=== PATIENT | male | born 1950 | race Asian ===

== ENCOUNTER 2016-11-17 11:39 | Inpatient (IN) | payer MEDICARE, OTHER ==
[~2016-11-17] VITALS: Ht 162.6 cm; Wt 83.9 kg
[~2016-11-17 11:39] MED LIST: ATOR20TA65 PO; DOCU250C91 PO; HYDR-3965 PO; LEVO150 PO; PHOSLOC PO; SENN-175 PO; TIOT185 IH
[2016-11-17] MEDS ORDERED: GABA-529 PO (11:53)
[2016-11-17] MEDS ORDERED: ALBU8HFA IH (11:53)
[2016-11-17] MEDS ORDERED: BISA5TAB12 PO (11:53)
[2016-11-17] MEDS ORDERED: TIOT185 IH (11:53)
[2016-11-17] MEDS ORDERED: SITA25 PO (11:53)
[2016-11-17] MEDS ORDERED: FOLI1 PO (11:53)
[2016-11-17] MEDS ORDERED: CYAN500 PO (11:53)
[2016-11-17 12:22] LABS: BASOPHILS # (AUTO) 0.03 K/uL (0.00-0.20); BASOPHILS % (AUTO) 0.5 % (0.0-2.0); EOSINOPHILS # (AUTO) 0.39 K/uL (0.00-0.70); EOSINOPHILS % (AUTO) 6.86 % (1.0-6.0); HEMATOCRIT 26.8 % (41-53); HEMOGLOBIN 8.7 g/dL (13.5-17.5); LYMPHOCYTES # (AUTO) 1.3 K/uL (1.0-4.8); LYMPHOCYTES % (AUTO) 22.5 % (22.0-44.0); MEAN CORPUSCULAR HEMOGLOBIN 35.6 pg (26.0-34.0); MEAN CORPUSCULAR HGB CONC 32.5 G/dL (31.0-37.0); MEAN CORPUSCULAR VOLUME 109 fL (80-100); MONOCYTES # (AUTO) 0.7 K/uL (0.1-1.0); MONOCYTES % (AUTO) 11.7 % (2.0-9.0); NEUTROPHILS # (AUTO) 3.4 K/uL (1.8-7.7); NEUTROPHILS % (AUTO) 58.4 % (40.0-70.0); PLATELET COUNT (AUTO) 120 K/uL (150-450); RED BLOOD CELL COUNT(AUTO) 2.45 MIL/uL (4.50-5.90); WHITE BLOOD COUNT (AUTO) 5.8 K/uL (4.5-11.0)
[2016-11-17 12:26] LABS: CALCIUM, TOTAL 8.6 mg/dL (8.8-10.5); CREATININE 4.92 mg/dL (0.60-1.30); POTASSIUM 3.2 mmol/L (3.5-5.1)
[2016-11-17] MEDS ORDERED: FUROSEMIDE 40 MG/4 ML VIAL IVP ONE (12:30)
[2016-11-17 12:32] LABS: ALBUMIN 2.6 g/dL (3.4-5.0); BILIRUBIN,TOTAL 0.3 mg/dL (0.1-1.0); TOTAL PROTEIN, SERUM 9.9 g/dL (6.4-8.2)
[2016-11-17] MEDS ORDERED: ONDANSETRON HCL 4 MG/2 ML VIAL IVP PRN (13:00)
[2016-11-17] MEDS ORDERED: ACETAMINOPHEN 325 MG TABLET PO PRN ×2 (13:00→15:30)
[2016-11-17] MEDS ORDERED: 0.9% SODIUM CHLORIDE 10 ML SYRINGE IVP PRN (13:00)
[2016-11-17] MEDS ORDERED: SODIUM CHLORIDE 0.9% 1,000 ML IV ONE (13:00)
[2016-11-17] MEDS ORDERED: SODIUM CHLORIDE 0.9% 100 ML ONE ×2 (13:12→17:49)
[2016-11-17] MEDS ORDERED: IOVERSOL 350 MG/ML 100 ML VIAL ONE (13:12)
[2016-11-17 13:32] LABS: INR 1.1 (0.9-1.1); PROTHROMBIN TIME 12.1 SEC (9.4-11.6)
[2016-11-17] MEDS ORDERED: AZITHROMYCIN 500 MG/NS 250 ML IV ONE (14:15)
[2016-11-17] MEDS ORDERED: CefTRIAXone 1 GM/DEXTROSE 50 ML IV ONE (14:15)
[2016-11-17 14:20] VITALS: BP 96/59
[2016-11-17 14:34] LABS: THYROID STIMULATING HORMONE 13.62 uIU/mL (0.36-3.74)
[2016-11-17] MEDS ORDERED: OxyCODONE HCL/ACETAMINOPHEN 5-325 MG TABLET PO PRN (15:30)
[2016-11-17] MEDS ORDERED: INSULIN ASPART 100 UNITS/ML SQ PRN (15:30)
[2016-11-17] MEDS ORDERED: DEXTROSE 50%-WATER 25 GM/50 ML SYRINGE IVP PRN (15:30)
[2016-11-17 15:45] VITALS: BP 82/49
[2016-11-17] MEDS ORDERED: MANNITOL 25%-12.5 GM/50 ML VIAL IVP PRN (16:00)
[2016-11-17] MEDS ORDERED: ALBUMIN HUMAN 25%-12.5GM/50ML IV BOTTLE IV PRN (16:00)
[2016-11-17] MEDS ORDERED: ALBUMIN HUMAN 5%-12.5GM/250ML 250 ML IV ONE (17:00)
[2016-11-17] MEDS ORDERED: ALBUMIN HUMAN 25%-12.5GM/50ML IV BOTTLE ONE (17:38)
[2016-11-17] MEDS ORDERED: MANNITOL 25%-12.5 GM/50 ML VIAL IVP ONE ×2 (17:38→17:40)
[2016-11-17] MEDS: CefTRIAXone 1 GM/DEXTROSE 50 ML IV SCH (18:27)
[2016-11-17 19:47] VITALS: BP 100/42
[2016-11-17 20:41] LABS: ABG A-A DIFF O2 105.6 mmHg (10-20.0); ABG BASE EXCESS 2.3 mmol/L (-2.0-3.0); ABG HCO3 26.2 mmol/L (22.0-26.0); ABG OXYHEMOGLOBIN 94.7 % (94.0-100.0); ABG PCO2 50 mmHg (35-45); ABG PH 7.363 (7.35-7.450); TEMPERATURE, FAHRENHEIT, BG 98.6 FAHREN (96.0-98.6)
[2016-11-17 20:42] LABS: ALLEN TEST, BLOOD GAS Positive
[2016-11-17] MEDS: DOXYCYCLINE 100 MG CAPSULE PO SCH ×2 (21:00→21:48)
[2016-11-17 21:20] VITALS: BP 93/50
[2016-11-17] MEDS: DOCUSATE SODIUM 100 MG CAPSULE PO SCH (21:47)
[2016-11-17] MEDS: HEPARIN SODIUM,PORCINE 5,000 UNITS/ML VIAL SQ SCH (21:47)
[2016-11-17] MEDS: MIDODRINE HCL 5 MG TABLET PO SCH (22:17)
[2016-11-17] MEDS: IPRATROPIUM BROMIDE 0.5 MG/2.5 ML NEB SOLUTION NEB SCH (23:06)
[2016-11-17] MEDS: ALBUTEROL SULFATE 2.5 MG/0.5 ML NEB SOLUTION NEB SCH (23:06)
[2016-11-17 23:43] VITALS: BP 99/53
[2016-11-18] MEDS: IPRATROPIUM BROMIDE 0.5 MG/2.5 ML NEB SOLUTION NEB SCH ×6 (03:45→22:47)
[2016-11-18] MEDS: ALBUTEROL SULFATE 2.5 MG/0.5 ML NEB SOLUTION NEB SCH ×6 (03:45→22:47)
[2016-11-18 04:30] VITALS: BP 93/57
[2016-11-18] MEDS: LEVOTHYROXINE SODIUM 50 MCG TABLET PO SCH (05:50)
[2016-11-18 06:24] LABS: BASOPHILS % (AUTO) 0.7 % (0.0-2.0); EOSINOPHILS % (AUTO) 7.5 % (1.0-6.0); HEMATOCRIT 23.5 % (41-53); HEMOGLOBIN 7.8 g/dL (13.5-17.5); LYMPHOCYTES # (AUTO) 0.9 K/uL (1.0-4.8); LYMPHOCYTES % (AUTO) 17.4 % (22.0-44.0); MEAN CORPUSCULAR VOLUME 109 fL (80-100); MONOCYTES # (AUTO) 0.6 K/uL (0.1-1.0); MONOCYTES % (AUTO) 11.6 % (2.0-9.0); NEUTROPHILS # (AUTO) 3.2 K/uL (1.8-7.7); NEUTROPHILS % (AUTO) 62.8 % (40.0-70.0); PLATELET COUNT (AUTO) 100 K/uL (150-450); RED BLOOD CELL COUNT(AUTO) 2.15 MIL/uL (4.50-5.90); RED CELL DISTRIBUTION WIDTH 19.3 % (11.5-14.5); WHITE BLOOD COUNT (AUTO) 5.1 K/uL (4.5-11.0)
[2016-11-18 06:58] LABS: ALBUMIN 2.6 g/dL (3.4-5.0); BILIRUBIN,TOTAL 0.3 mg/dL (0.1-1.0); CALCIUM, TOTAL 7.8 mg/dL (8.8-10.5); CREATININE 4.47 mg/dL (0.60-1.30); PHOSPHORUS 2.5 mg/dL (2.5-4.9); POTASSIUM 4.4 mmol/L (3.5-5.1); TOTAL PROTEIN, SERUM 8.8 g/dL (6.4-8.2)
[2016-11-18 07:50] VITALS: BP 106/65
[2016-11-18 08:23] LABS: RBC MORPHOLOGY COMMENT ABNORMAL RBC MORPH
[2016-11-18] MEDS ORDERED: MIDODRINE HCL 5 MG TABLET PO SCH (09:00)
[2016-11-18] MEDS: HEPARIN SODIUM,PORCINE 5,000 UNITS/ML VIAL SQ SCH ×2 (11:13→20:50)
[2016-11-18] MEDS: DOCUSATE SODIUM 100 MG CAPSULE PO SCH ×2 (11:13→20:51)
[2016-11-18] MEDS: DOXYCYCLINE 100 MG CAPSULE PO SCH ×2 (11:13→20:50)
[2016-11-18] MEDS: VITAMIN B COMP/VIT C/FOLIC ACID CAPSULE PO SCH (11:14)
[2016-11-18] MEDS: MIDODRINE HCL 5 MG TABLET PO SCH ×3 (11:14→20:50)
[2016-11-18] MEDS: PANTOPRAZOLE SODIUM 40 MG DR TABLET PO SCH (11:14)
[2016-11-18] MEDS: ASPIRIN 81 MG CHEWABLE TABLET PO SCH (11:14)
[2016-11-18 12:12] VITALS: BP 99/58
[2016-11-18 12:13] LABS: GLUCOSE,POINT OF CARE 128 MG/DL (70-110)
[2016-11-18 12:22] LABS: GLUCOSE,POINT OF CARE 114 MG/DL (70-110)
[2016-11-18] MEDS: CefTRIAXone 1 GM/DEXTROSE 50 ML IV SCH (15:14)
[2016-11-18 16:01] VITALS: BP 98/53
[2016-11-18] MEDS: OXYGEN THERAPY IH SCH (18:48)
[2016-11-18 20:03] VITALS: BP 98/57
[2016-11-19] VITALS (7 sets, daily range): BP systolic 108–151; BP diastolic 60–99
[2016-11-19] MEDS: IPRATROPIUM BROMIDE 0.5 MG/2.5 ML NEB SOLUTION NEB SCH ×6 (02:45→23:19)
[2016-11-19] MEDS: ALBUTEROL SULFATE 2.5 MG/0.5 ML NEB SOLUTION NEB SCH ×6 (02:45→23:19)
[2016-11-19 06:09] LABS: BASOPHILS % (AUTO) 0.7 % (0.0-2.0); EOSINOPHILS % (AUTO) 7.3 % (1.0-6.0); HEMATOCRIT 24.2 % (41-53); HEMOGLOBIN 7.9 g/dL (13.5-17.5); LYMPHOCYTES # (AUTO) 0.8 K/uL (1.0-4.8); LYMPHOCYTES % (AUTO) 16.4 % (22.0-44.0); MEAN CORPUSCULAR HEMOGLOBIN 35.3 pg (26.0-34.0); MEAN CORPUSCULAR HGB CONC 32.7 G/dL (31.0-37.0); MEAN CORPUSCULAR VOLUME 108 fL (80-100); MONOCYTES # (AUTO) 0.5 K/uL (0.1-1.0); MONOCYTES % (AUTO) 10.9 % (2.0-9.0); NEUTROPHILS # (AUTO) 3.2 K/uL (1.8-7.7); NEUTROPHILS % (AUTO) 64.7 % (40.0-70.0); PLATELET COUNT (AUTO) 94 K/uL (150-450); RED BLOOD CELL COUNT(AUTO) 2.24 MIL/uL (4.50-5.90)
[2016-11-19] MEDS: LEVOTHYROXINE SODIUM 50 MCG TABLET PO SCH (06:11)
[2016-11-19 06:39] LABS: CALCIUM, TOTAL 7.7 mg/dL (8.8-10.5); CREATININE 6.29 mg/dL (0.60-1.30); MAGNESIUM 2.1 mg/dL (1.80-2.40); PHOSPHORUS 4.1 mg/dL (2.5-4.9); POTASSIUM 4.8 mmol/L (3.5-5.1)
[2016-11-19] MEDS ORDERED: ALBUMIN HUMAN 25%-12.5GM/50ML IV BOTTLE IV PRN (07:45)
[2016-11-19] MEDS ORDERED: MANNITOL 25%-12.5 GM/50 ML VIAL IVP PRN (07:45)
[2016-11-19] MEDS ORDERED: SODIUM CHLORIDE 0.9% 1,000 ML IV ONE ×2 (07:47)
[2016-11-19 08:27] LABS: RBC MORPHOLOGY COMMENT ABNORMAL RBC MORPH
[2016-11-19] MEDS ORDERED: EPOETIN ALFA 10,000 UNITS/ML VIAL SQ SCH (09:00)
[2016-11-19 10:00] LABS: GLUCOSE,POINT OF CARE 85 MG/DL (70-110)
[2016-11-19 10:00] LABS: GLUCOSE,POINT OF CARE 104 MG/DL (70-110)
[2016-11-19 10:00] LABS: GLUCOSE,POINT OF CARE 118 MG/DL (70-110)
[2016-11-19 10:01] LABS: GLUCOSE,POINT OF CARE 114 MG/DL (70-110)
[2016-11-19 10:12] LABS: GLUCOSE COMMENT 1 Received Meds; GLUCOSE,POINT OF CARE 177 MG/DL (70-110)
[2016-11-19] MEDS: DOXYCYCLINE 100 MG CAPSULE PO SCH ×2 (11:47→21:03)
[2016-11-19] MEDS: VITAMIN B COMP/VIT C/FOLIC ACID CAPSULE PO SCH (11:47)
[2016-11-19] MEDS: ASPIRIN 81 MG CHEWABLE TABLET PO SCH (11:48)
[2016-11-19] MEDS: DOCUSATE SODIUM 100 MG CAPSULE PO SCH ×2 (11:48→21:03)
[2016-11-19] MEDS: PANTOPRAZOLE SODIUM 40 MG DR TABLET PO SCH (11:48)
[2016-11-19] MEDS: MIDODRINE HCL 5 MG TABLET PO SCH ×3 (11:48→21:03)
[2016-11-19] MEDS: HEPARIN SODIUM,PORCINE 5,000 UNITS/ML VIAL SQ SCH ×2 (11:49→21:04)
[2016-11-19] MEDS: OXYGEN THERAPY IH SCH ×2 (11:54→21:04)
[2016-11-19] MEDS: CefTRIAXone 1 GM/DEXTROSE 50 ML IV SCH (15:27)
[2016-11-19 20:06] LABS: FERRITIN 455 ng/mL (26-388)
[2016-11-19 20:24] LABS: LACTATE DEHYDROGENASE 253 U/L (85-227)
[2016-11-19 20:30] LABS: FIBRINOGEN 254 mg/dL (200-400); PARTIAL THROMBOPLASTIN TIME 31 SEC (25-35)
[2016-11-19] MEDS: BISACODYL 10 MG RECTAL RECTAL SUPPOSITORY PR PRN (21:04)
[2016-11-19 21:11] LABS: MYCOPLASMA AB IGG 350 U/mL (0-99)
[2016-11-20] MEDS: ALBUTEROL SULFATE 2.5 MG/0.5 ML NEB SOLUTION NEB SCH ×6 (03:43→23:25)
[2016-11-20] MEDS: IPRATROPIUM BROMIDE 0.5 MG/2.5 ML NEB SOLUTION NEB SCH ×6 (03:44→23:25)
[2016-11-20 04:46] VITALS: BP 122/74
[2016-11-20] MEDS: LEVOTHYROXINE SODIUM 50 MCG TABLET PO SCH (06:04)
[2016-11-20 07:45] VITALS: BP 136/87
[2016-11-20 07:55] LABS: HOMOCYSTEINE, TOTAL 13.9 umol/L (0.0-15.0)
[2016-11-20] MEDS: MIDODRINE HCL 5 MG TABLET PO SCH ×3 (08:27→20:43)
[2016-11-20] MEDS: ASPIRIN 81 MG CHEWABLE TABLET PO SCH (08:27)
[2016-11-20] MEDS: PANTOPRAZOLE SODIUM 40 MG DR TABLET PO SCH (08:27)
[2016-11-20] MEDS: DOXYCYCLINE 100 MG CAPSULE PO SCH ×2 (08:27→20:43)
[2016-11-20] MEDS: HEPARIN SODIUM,PORCINE 5,000 UNITS/ML VIAL SQ SCH ×2 (08:27→20:43)
[2016-11-20] MEDS: VITAMIN B COMP/VIT C/FOLIC ACID CAPSULE PO SCH (08:27)
[2016-11-20] MEDS: DOCUSATE SODIUM 100 MG CAPSULE PO SCH ×2 (08:27→20:43)
[2016-11-20] MEDS: OXYGEN THERAPY IH SCH ×2 (08:36→20:35)
[2016-11-20 08:53] LABS: VITAMIN B12 LEVEL 1101 pg/mL (211-911)
[2016-11-20 11:23] VITALS: BP 106/48
[2016-11-20 12:43] LABS: GLUCOSE,POINT OF CARE 93 MG/DL (70-110)
[2016-11-20 12:43] LABS: GLUCOSE,POINT OF CARE 174 MG/DL (70-110)
[2016-11-20 12:43] LABS: GLUCOSE COMMENT 1 Received Meds; GLUCOSE,POINT OF CARE 157 MG/DL (70-110)
[2016-11-20 12:43] LABS: GLUCOSE,POINT OF CARE 134 MG/DL (70-110)
[2016-11-20] MEDS: CefTRIAXone 1 GM/DEXTROSE 50 ML IV SCH (14:30)
[2016-11-20] MEDS ORDERED: LEVO137T24 PO (15:07)
[2016-11-20] MEDS ORDERED: MAGNESIUM HYDROXIDE SUSPENSION 30 ML UDCUP PO PRN (15:15)
[2016-11-20 15:16] VITALS: BP 116/65
[2016-11-20] MEDS: MAGNESIUM HYDROXIDE SUSPENSION 30 ML UDCUP PO PRN ×2 (17:03→20:43)
[2016-11-20 19:38] LABS: GLUCOSE,POINT OF CARE 98 MG/DL (70-110)
[2016-11-20 20:32] VITALS: BP 112/57
[2016-11-20 23:21] VITALS: BP 126/73
[2016-11-21 01:18] LABS: GLUCOSE,POINT OF CARE 149 MG/DL (70-110)
[2016-11-21] MEDS: ALBUTEROL SULFATE 2.5 MG/0.5 ML NEB SOLUTION NEB SCH ×4 (03:39→15:00)
[2016-11-21] MEDS: IPRATROPIUM BROMIDE 0.5 MG/2.5 ML NEB SOLUTION NEB SCH ×4 (03:39→15:00)
[2016-11-21 05:29] VITALS: BP 100/49
[2016-11-21] MEDS: LEVOTHYROXINE SODIUM 50 MCG TABLET PO SCH (06:01)
[2016-11-21 07:45] VITALS: BP 115/73
[2016-11-21 08:33] LABS: GLUCOSE,POINT OF CARE 133 MG/DL (70-110)
[2016-11-21] MEDS: DOXYCYCLINE 100 MG CAPSULE PO SCH (09:21)
[2016-11-21] MEDS: DOCUSATE SODIUM 100 MG CAPSULE PO SCH (09:22)
[2016-11-21] MEDS: ASPIRIN 81 MG CHEWABLE TABLET PO SCH (09:22)
[2016-11-21] MEDS: HEPARIN SODIUM,PORCINE 5,000 UNITS/ML VIAL SQ SCH (09:22)
[2016-11-21] MEDS: VITAMIN B COMP/VIT C/FOLIC ACID CAPSULE PO SCH (09:22)
[2016-11-21] MEDS: PANTOPRAZOLE SODIUM 40 MG DR TABLET PO SCH (09:22)
[2016-11-21] MEDS: MIDODRINE HCL 5 MG TABLET PO SCH ×2 (09:22→16:04)
[2016-11-21] MEDS: OXYGEN THERAPY IH SCH (09:29)
[2016-11-21 11:44] VITALS: BP 101/44
[2016-11-21] MEDS ORDERED: ALBUMIN HUMAN 25%-25GM/100ML 100 ML IV PRN (12:15)
[2016-11-21] MEDS ORDERED: MIDODRINE HCL 5 MG TABLET PO PRN (12:15)
[2016-11-21 13:08] LABS: GLUCOSE,POINT OF CARE 94 MG/DL (70-110)
[2016-11-21] MEDS ORDERED: CIPR-279 PO (15:07)
[2016-11-21 15:42] VITALS: BP 102/56
[2016-11-21] MEDS ORDERED: BISACODYL 10 MG RECTAL RECTAL SUPPOSITORY PR PRN (15:45)
[2016-11-21] MEDS: BISACODYL 10 MG RECTAL RECTAL SUPPOSITORY PR PRN (16:04)
[2016-11-21] MEDS: CefTRIAXone 1 GM/DEXTROSE 50 ML IV SCH (16:04)
[2016-11-21 22:22] LABS: GLUCOSE,POINT OF CARE 135 MG/DL (70-110)
[2016-11-22] MEDS ORDERED: -HEMODIALYSIS NOTE- MISC SCH (09:00)
[2016-11-22] MEDS ORDERED: EPOETIN ALFA 10,000 UNITS/ML 2 ML VIAL SQ SCH (09:00)
[2016-11-22 22:19] LABS: METHYLMALONIC ACID 624 nmol/L (0-378)
[2016-11-23 06:22] LABS: ALBUMIN (IFE & ELECTROPHOR) 3.5 g/dL (2.9-4.4); ALBUMIN/GLOBULIN RATIO (IFE) 0.8 (0.7-1.7); ALPHA-2 (IFE & PEP) 0.5 g/dL (0.4-1.0); IGG (IMMUNOFIXATION) 3365 mg/dL (700-1600); M-SPIKE (IEP) Not Observed g/dL (Not Observed); TOTAL PROTEIN 8.5 g/dL (6.0-8.5)
== END 2016-11-21 19:00 | disposition home or self-care (01) | DRG 189 ==
LOC: EMS 11:43 → 5N 13:06
PROVIDERS: ADMIT Internal Medicine; ATTEND Internal Medicine
DX: J96.01 Acute respiratory failure with hypoxia (principal); J69.0 Pneumonitis due to inhalation of food and vomit; E43 Unspecified severe protein-calorie malnutrition; I50.21 Acute systolic (congestive) heart failure; R18.8 Other ascites; N18.6 End stage renal disease; J44.0 Chronic obstructive pulmonary disease with (acute) lower respiratory infection; I42.9 Cardiomyopathy, unspecified; E87.1 Hypo-osmolality and hyponatremia; I13.2 Hypertensive heart and chronic kidney disease with heart failure and with stage 5 chronic kidney disease, or end stage renal disease; J44.1 Chronic obstructive pulmonary disease with (acute) exacerbation; E11.22 Type 2 diabetes mellitus with diabetic chronic kidney disease; D69.6 Thrombocytopenia, unspecified; I49.5 Sick sinus syndrome; I25.10 Atherosclerotic heart disease of native coronary artery without angina pectoris; D53.9 Nutritional anemia, unspecified; E03.9 Hypothyroidism, unspecified; E78.00 Pure hypercholesterolemia, unspecified; F17.200 Nicotine dependence, unspecified, uncomplicated; I48.2 Chronic atrial fibrillation; K11.20 Sialoadenitis, unspecified; K59.00 Constipation, unspecified; K74.60 Unspecified cirrhosis of liver; Z82.49 Family history of ischemic heart disease and other diseases of the circulatory system; Z83.3 Family history of diabetes mellitus; Z86.73 Personal history of transient ischemic attack (TIA), and cerebral infarction without residual deficits; Z99.2 Dependence on renal dialysis; Z99.81 Dependence on supplemental oxygen
CPT/HCPCS: 71260; 76700; 82271; 82607; 82728; 82746; 82784; 82805; 82962; 83090; 83540; 83550; 83605; 83615; 83735; 83883; 83921; 84100; 84155; 84165; 84439; 84443; 84481; 85045; 85362; 85379; 85384; 86334; 87015; 87040; 87081; 87340; 87798; 90935; 93005; 93306; 94640; 96361; 96374; 99285; J0456; J0696; J0885; J1644; J1940; J2150; J7030; J7050; P9041; P9047